=== PATIENT | male | born 1965 | race Caucasian/White ===

== ENCOUNTER 2021-02-04 19:20 | Inpatient (IN) ==
[2021-02-04] MEDS ORDERED: ONDANSETRON 4 MG/2 ML VIAL IV STA (19:52)
[2021-02-04] MEDS ORDERED: INSULIN REGULAR 100 UNIT/ML IV STA (19:52)
[2021-02-04] MEDS ORDERED: SODIUM CHLORIDE 0.9% 1,000 ML IV STA ×3 (19:52→22:26)
[2021-02-04 20:18] LABS: Basophils # 0.1 10*3/uL (0.0-0.2); Basophils % 0.4 % (0.0-0.8); Hematocrit 54.7 VOL% (42.0-52.0); Hemoglobin 17.2 GM/DL (14.0-18.0); Immature Granulocytes % 2.2 %; Immature Granulocytes Absolute 0.67 #; Lymphocytes # 1.3 10*3/uL (1.4-4.0); Lymphocytes % 4.3 % (21.2-54.2); Mean Corpuscular HGB Conc 31.4 GM/DL (32-36); Mean Corpuscular Volume 91.2 FL (87-102); Mean Platelet Volume 11.9 FL (9.6-12.0); Monocytes % 5.5 % (1.7-12.7); Neutrophils % 87.6 % (38.7-73.9); Platelet Count 490 T/CUMM (130-400); Red Cell Distribution Width 13.1 % (9.3-17.3)
[2021-02-04 20:39] LABS: Band Neutrophils 1 % (0-10); Lymphocytes 5 % (20-55); Myelocytes 2 %; Segmented Neutrophils 88 % (50-85); Total Cells Counted 100
[2021-02-04 20:40] LABS: Polychromasia Few
[2021-02-04 20:41] LABS: Platelet Estimate Increased
[2021-02-04 20:43] LABS: Alanine Aminotransferase 24 U/L (16-61); Alkaline Phosphatase 98 U/L (45-117); Amylase 50 U/L (25-115); Aspartate Amino Transferase 6 U/L (0-37); Blood Urea Nitrogen 41 MG/DL (7-18); Calcium 10.3 MG/DL (8.5-10.1); Carbon Dioxide 14 MMOL/L (21-32); Estimated Glom Filtration Rate 35 ML/MIN; Glucose 495 MG/DL (74-106); Osmolality,Calculated 288.1 MOS/KG (273-304); Potassium 5.9 MMOL/L (3.5-5.1); Sodium 128 MMOL/L (136-145)
[2021-02-04 20:46] LABS: PT Patient Result 10.9 SECS (10.5-12.0); Partial Thromboplastin Time 22.8 SECS (23.8-32.1)
[2021-02-04 21:33] LABS: Bacteria,Urine Occasional /HPF (Few); Bilirubin,Urine Negative (Negative); Blood, Urine Negative (Negative); Glucose,Urine (UA) >=500 mg/dL (Negative); Hyaline Casts,Urine 8 /LPF (0-3); Ketones,Urine 80 mg/dL (Negative); Mucus,Urine Occasional /LPF (Occasional); Nitrite,Urine Negative (Negative); Protein,Urine Negative; Urine Appearance CLEAR (Clear); Urine Color Straw (Yellow); Urine Specific Gravity 1.023 (1.001-1.035); Urine Urobilinogen < 2.0 EU/DL (0.2-1.0)
[2021-02-04 22:55] LABS: ABG Base Excess -12.3 MMOL/L (-2.5-2.5); ABG HCO3 15.1 MMOL/L (20-26); ABG Oxygen Saturation 97.4 % (95-100); ABG PCO2 27.9 MM HG (35-48); ABG PH 7.283 (7.35-7.45); ABG TCO2 11.6 MMOL/L (23-27)
[2021-02-04] MEDS ORDERED: SODIUM CHLORIDE 0.9% 500 ML IV STA (23:28)
[2021-02-04] MEDS ORDERED: VANCOMYCIN INJ 1,000 MG in SODIUM CHLORIDE 0.9% 250 ML IV STA (23:28)
[2021-02-04] MEDS ORDERED: LEVOFLOXACIN INJ 750 MG/150 ML PREMIX IV STA (23:31)
[2021-02-05 00:18] LABS: Calcium 8.5 MG/DL (8.5-10.1); Osmolality,Calculated 290.1 MOS/KG (273-304); Potassium 5.3 MMOL/L (3.5-5.1)
[2021-02-05] MEDS ORDERED: DEXTROSE 50% 25 GM/50 ML VIAL IV PRN ×3 (01:31→02:56)
[2021-02-05] MEDS ORDERED: POTASSIUM CHLORIDE RIDER 10 MEQ/100 ML PREMIX IV PRN (01:31)
[2021-02-05] MEDS ORDERED: SODIUM BICARB INJ 100 MEQ in STERILE WATER INJ 400 ML IV PRN (01:31)
[2021-02-05] MEDS ORDERED: MAGNESIUM SULF RIDER 2 GM/50 ML PREMIX IV PRN (01:31)
[2021-02-05] MEDS ORDERED: SODIUM PHOSPHATE INJ 21 MMOL in SODIUM CHLORIDE 0.9% 250 ML IV PRN (01:31)
[2021-02-05] MEDS ORDERED: MAGNESIUM SULF RIDER 4 GM/100 ML PREMIX IV PRN (01:31)
[2021-02-05] MEDS ORDERED: INSULIN REGULAR 100 UNIT/ML IV ONE (01:31)
[2021-02-05 02:02] VITALS: BP 122/70
[2021-02-05] MEDS ORDERED: INSULIN REGULAR DRIP 100 ML IV PRN (02:24)
[2021-02-05 02:31] LABS: ABG Base Excess -9.4 MMOL/L (-2.5-2.5); ABG Oxygen Saturation 97.4 % (95-100); ABG PCO2 30.1 MM HG (35-48); ABG PH 7.322 (7.35-7.45); ABG TCO2 13.7 MMOL/L (23-27)
[2021-02-05] MEDS ORDERED: GLUCAGON 1 MG VIAL IM PRN (02:56)
[2021-02-05] MEDS: SODIUM CHLORIDE 0.9% 1,000 ML IV SCH ×2 (03:00→04:57)
[2021-02-05] MEDS ORDERED: LACTATED RINGERS 1,000 ML IV SCH ×2 (03:30→07:30)
[2021-02-05] MEDS: INSULIN REGULAR 100 UNIT/ML SUBCUT SCH ×5 (04:10→21:02)
[2021-02-05 05:26] LABS: Basophils % 0.2 % (0.0-0.8); Hematocrit 37.5 VOL% (42.0-52.0); Immature Granulocytes % 1.1 %; Immature Granulocytes Absolute 0.25 #; Lymphocytes % 8.8 % (21.2-54.2); Mean Corpuscular Volume 88.7 FL (87-102); Mean Platelet Volume 11.5 FL (9.6-12.0); Monocytes % 9.2 % (1.7-12.7); Neutrophils % 80.7 % (38.7-73.9); Platelet Count 322 T/CUMM (130-400); Red Blood Count 4.23 MC/CUMM (3.8-5.5); Red Cell Distribution Width 13.2 % (9.3-17.3); White Blood Count 22.7 T/CUMM (4-12)
[2021-02-05 05:29] LABS: Band Neutrophils 3 % (0-10); Hypochromasia Slight; Lymphocytes 7 % (20-55); Segmented Neutrophils 81 % (50-85); Total Cells Counted 100
[2021-02-05 05:30] LABS: Microcytosis 1+; Platelet Estimate Normal
[2021-02-05 05:31] LABS: Osmolality,Calculated 282.1 MOS/KG (273-304); Potassium 4.8 MMOL/L (3.5-5.1)
[2021-02-05] MEDS ORDERED: SODIUM CHLORIDE 0.9% 1,000 ML IV SCH (07:00)
[2021-02-05 07:21] LABS: Osmolality,Calculated 278.1 MOS/KG (273-304); Potassium 4.4 MMOL/L (3.5-5.1)
[2021-02-05 11:23] LABS: Calcium 7.8 MG/DL (8.5-10.1); Osmolality,Calculated 278.2 MOS/KG (273-304); Potassium 4.1 MMOL/L (3.5-5.1)
[2021-02-05] MEDS ORDERED: VANCOMYCIN INJ 1,250 MG in SODIUM CHLORIDE 0.9% 250 ML IV SCH (12:00)
[2021-02-05] MEDS ORDERED: DAPAGLIFLOZIN 10 MG TABLET PO SCH (14:30)
[2021-02-05 16:13] LABS: Calcium 7.9 MG/DL (8.5-10.1); Osmolality,Calculated 280.1 MOS/KG (273-304); Potassium 3.9 MMOL/L (3.5-5.1)
[2021-02-05] MEDS ORDERED: SODIUM CHLORIDE 0.45% 1,000 ML IV SCH (19:00)
[2021-02-05 19:20] LABS: Potassium 3.7 MMOL/L (3.5-5.1)
[2021-02-06] MEDS: INSULIN REGULAR 100 UNIT/ML SUBCUT SCH ×3 (00:06→08:43)
[2021-02-06] MEDS ORDERED: SIMVASTATIN 20 MG TABLET PO SCH (09:00)
== END 2021-02-06 10:50 | disposition home or self-care (01) | DRG 638 ==
LOC: N.ED 19:20 → N.EDINP 02-05 01:31 → N.CC 02-05 02:18
PROVIDERS: ADMIT Internal Medicine; ATTEND Internal Medicine